=== PATIENT | female | born 1970 | race Caucasian/White ===

== ENCOUNTER 2023-04-03 08:08 | Outpatient (AMB) | payer OTHER, SELFPAY ==
[2023-04-03 08:11] VITALS: BP 122/74; PULSE 83; TEMP 36.2; O2SAT 98; BMI 26.5
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
== END 2023-04-03 09:38 | disposition left against medical advice (07) ==
PROVIDERS: Visit Provider Physician Assistant
DX: M25.539 Pain in unspecified wrist (principal)
CPT/HCPCS: 99214

== ENCOUNTER 2023-04-03 08:28 | Outpatient (REF) | payer OTHER, SELFPAY ==
--- NOTE | ~2023-04-03 | XR_ITS ---
EXAMINATION: XR WRIST, LEFT XR HAND, LEFT CLINICAL INFORMATION: Left wrist pain. COMPARISON: None available. TECHNIQUE: PA, lateral, and oblique views of the left wrist and PA, lateral, and oblique views of the left hand FINDINGS: The bones are osteopenic. LEFT HAND/WRIST: There is an impacted comminuted fracture of the distal radius involving the radial styloid process with extension to the radiocarpal joint and distal radioulnar joint. There is regional soft tissue swelling. Age at the fracture is indeterminate. There is dorsal angulation of the distal fracture fragment. XR/XR hand wrist LT IMPRESSION: Impacted comminuted fracture of the distal radius with dorsal angulation of the distal fracture fragment.
== END 2023-04-03 08:29 | disposition home or self-care (01) ==
LOC: HO.HMGCX 08:28
PROVIDERS: PCP Student in an Organized Health Care Education/Training Program; Visit Provider Physician Assistant
DX: M25.532 Pain in left wrist (principal)
CPT/HCPCS: 73110; 73130

== ENCOUNTER 2023-04-08 14:48 | Outpatient (AMB) | payer OTHER, SELFPAY ==
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
[2023-04-08 15:09] VITALS: BMI 26.5
== END 2023-04-08 15:35 | disposition home or self-care (01) ==
LOC: HO.HOS 14:48
PROVIDERS: PCP Student in an Organized Health Care Education/Training Program; Visit Provider Orthopaedic Surgery
DX: S52.502A Unspecified fracture of the lower end of left radius, initial encounter for closed fracture (principal); V18.0XXA Pedal cycle driver injured in noncollision transport accident in nontraffic accident, initial encounter
CPT/HCPCS: 99203

== ENCOUNTER → 2023-04-08 14:48 | Outpatient (BNVA) | payer OTHER, SELFPAY | PROVIDERS: PCP Student in an Organized Health Care Education/Training Program; Visit Provider Orthopaedic Surgery ==